=== PATIENT | male | born 1975 | race Caucasian/White ===

== ENCOUNTER → 2024-02-11 06:19 | Day surgery (SDC) | payer OTHER, SELFPAY | LOC: GI 06:19 | PROVIDERS: ATTENDING PHYSICIAN Internal Medicine Gastroenterology | DX: Z12.11 Encounter for screening for malignant neoplasm of colon (principal); K64.8 Other hemorrhoids; K31.7 Polyp of stomach and duodenum; K31.89 Other diseases of stomach and duodenum; K21.9 Gastro-esophageal reflux disease without esophagitis; Z83.719 Family history of colon polyps, unspecified | CPT/HCPCS: 43239; G0105; 88305; 88342 ==